=== PATIENT | male | born 1965 | race Caucasian/White ===

== ENCOUNTER 2025-01-15 06:51 | Day surgery (SDC) | payer BC ==
[~2025-01-15] VITALS: Ht 182.9 cm; Wt 98.4 kg
[~2025-01-15 06:51] MED LIST: ASPI-1071 PO; ATOR40TA PO; CYAN-104 PO; INSU100C10 SQ; ringers solution, lacted 1,000 ML IV SCH
[2025-01-15 07:12] VITALS: BP 133/82; PULSE 68; RESP 15; RESP 16; TEMP 97.4; O2SAT 98
[2025-01-15] MEDS ORDERED: simethicone 40mg/0.6ml oral drops 15ml ONE (08:00)
[2025-01-15] MEDS ORDERED: MIDAZolam 1 MG/ML 5ML VIAL ONE (08:57)
[2025-01-15] MEDS ORDERED: fentaNYL/PF 50MCG/1 ML 2ML syringe ONE ×3 (08:59→09:08)
[2025-01-15 09:50] VITALS: BP 108/70; PULSE 61; RESP 12; O2SAT 100
[2025-01-15 10:00] VITALS: BP 107/75; PULSE 59; RESP 12; O2SAT 100
[2025-01-15 10:10] VITALS: BP 109/72; PULSE 58; RESP 12; O2SAT 100
[2025-01-15 10:20] VITALS: BP 115/71; PULSE 56; RESP 12; O2SAT 100
[2025-01-15 10:30] VITALS: BP 124/81; PULSE 58; RESP 12; O2SAT 100
== END 2025-01-15 10:40 | disposition home or self-care (01) ==
LOC: PAS 06:51
PROVIDERS: ATTEND Internal Medicine Gastroenterology
DX: Z12.11 Encounter for screening for malignant neoplasm of colon (principal); D12.2 Benign neoplasm of ascending colon; E78.5 Hyperlipidemia, unspecified; E10.9 Type 1 diabetes mellitus without complications; Z86.0100 Personal history of colon polyps, unspecified; Z88.8 Allergy status to other drugs, medicaments and biological substances; Z79.4 Long term (current) use of insulin
CPT/HCPCS: 45385; 99152; 99153; J2250; J3010; J7120; Z7512; A4620